=== PATIENT | male | born 1960 | race Caucasian/White ===

== ENCOUNTER 2016-04-18 10:59 | Emergency (ER) | payer OTHER ==
[~2016-04-18] VITALS: Ht 177.8 cm; Wt 86.4 kg
[2016-04-18 11:01] VITALS: BP 190/122; RESP 18; O2SAT 96
== END 2016-04-18 13:03 | disposition left against medical advice (07) ==
LOC: SED 10:59
DX: Z53.20 Procedure and treatment not carried out because of patient's decision for unspecified reasons (principal)

== ENCOUNTER 2016-09-08 13:13 | Observation (INO) | payer OTHER ==
[~2016-09-08] VITALS: Ht 177.8 cm; Wt 92.5 kg
[2016-09-08 15:11] VITALS: BP 150/88; PULSE 49; RESP 22; O2SAT 100
[2016-09-08] MEDS ORDERED: Senna-Docusate 8.6-50 mg Tablet PO PRN (15:45)
[2016-09-08] MEDS ORDERED: Atropine 1 mg/10 mL (Code) Syringe IVPUSH PRN (15:45)
[2016-09-08] MEDS ORDERED: Polyethylene Glycol (PEG) 17 Gm Powder PO PRN (15:45)
[2016-09-08] MEDS ORDERED: Alum-Mag Hydrox-Simeth 30 mL Suspension PO PRN (15:45)
[2016-09-08] MEDS ORDERED: Ondansetron 2 mg/mL 2 mL Inj IVPUSH PRN (15:45)
[2016-09-08] MEDS ORDERED: ASPI-973 PO (15:50)
[2016-09-08] MEDS ORDERED: SIMV40TA5 PO (15:50)
[2016-09-08] MEDS ORDERED: METO25TA6 PO (15:50)
[2016-09-08] MEDS ORDERED: Heparin 25K Unit/500mL 0.45 NS 25,000 UNIT in IV Premix 1 EACH IV SCH (15:55)
--- NOTE | 2016-09-08 16:03 | PCM.HPMED ---
Subjective Date of Service Sep 08, 2016 Primary Provider: Admitting Physician: Mehrdad Blackwell MD Primary Care Physician: Nopcp Attending Physician: Mehrdad Blackwell MD Admit Status: 23-Hour Observation, [facility] Telemetry Chief Complaint: Chest pain, possible unstable angina History of Present Illness: This is a 55-year-old man with known history of CAD and coronary bypass grafting 4 in 2011. The patient has had intermittent chest pain episodes for 4 weeks. He notes that he went to the ER about 4 weeks ago. Since then he has had about 4 episodes. He has been talking to his doctor at the [facility] about having a heart test but this is been pending and not yet happened. Today he also chest tightness while at rest and have a feeling of doom and left arm pain. Symptoms lasted one hour. Gradually got better and went way. He notes that most of his episodes of happened at rest one happened when he was planting a free. He notes that the pain has reliably radiated to the left arm. Nothing in particular is noted this pain come on including exertion and nothing in particular is made up including taken nitroglycerin. He said no associated shortness of breath or diaphoresis he does have chronic stomach problem is but denies active dyspepsia recently and has been taking omeprazole every other day for some time. He does have history of all abuse but did stop about 12 days ago for 9 days. The last 3 days he has been drinking again has gone through half case of beer as well as whiskey last night. He does not use at risk for withdrawal based on the previous 9 days. Denies a cough, calf pain or swelling or hemoptysis. No clear exertional chest pain or dyspnea. Review of Systems: His chronic depression denies suicidal ideation. He also has chronic polyuria and some retention he believes his prostate is causing this. He has intermittent constipation recently.All else is reviewed and otherwise negative except as noted in the history of present illness Allergies Coded Allergies: No Known Allergies (Unverified , 04/18/16) Home Medications Baby aspirin once a day metoprolol 25 mg twice a day, simvastatin 40 mg daily and omeprazole 20 mg every other day PMH CAD with history of bypass grafting in 2010. He has a history of coronary extremity 2012 and exercise stress test in 2012. Bypass was preceded by symptoms of syncope. 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 Social History Occupation: retired Hx Alcohol Use: Yes Alcoholic Drinks Per Day: 3-4 Hx Substance Use: Yes Hx Tobacco Use: No Living Arrangement: with Family Exam Vital Signs Vital Sign - Last Date Time Temp Pulse Resp B/P Pulse Ox O2 Delivery O2 Flow Rate FiO2 09/08/16 15:11 36.4 49 22 150/88 100 Room Air Exam Oriented 3. No distress. Fluent speech. Normal affect. Normal skull. Normal nose and ears. Anicteric sclera, symmetric pupils Oropharynx is unremarkable, no facial droop. Neck is supple, normal thyroid. No adenopathy. Lungs are clear, normal effort rate. Heart is regular without murmur gallop or rub. Abdomen soft, nondistended or tender. Extremities are free of pedal edema. Good radial and pedal pulses. Skin is free of rash, lesions. No petechiae or ecchymosis. Joints are grossly normal. Cranial nerves are grossly normal. Motor strength is normal in all extremities. Normal muscular tone. Patient's multiple tattoos over her arms. He also has a flat affect. Assessment & Plan 1. Unstable angina, POA. The patient will be treated with dual antiplatelets including a Plavix load as well as a beta blockade and heparin which is ordered regarding IV upon transfer. We will also start him on nitroglycerin paste and continue atorvastatin. We will trend troponins and cardiology is oriented and performed prior to his transfer. 2. Alcohol abuse, POA. The patient is likely low risk for withdrawal but watch and follow clinically. B Yusuf protocol was not an active at this time 3. Depression, POA. Follow clinically. Patients for resuscitation Patient is admitted observation status estimated is 190. Pain Evaluation: Adequate Pain Control Resuscitation Status: CPR: Attempt Resuscitation Time spent 40 minutes Mehrdad Blackwell MD Sep 08, 2016 16:03
[2016-09-08] MEDS ORDERED: Heparin Initial Bolus IVPUSH ONE (16:15)
[2016-09-08] MEDS ORDERED: Heparin 5,000 Unit/mL Inj SUBQ SCH (16:30)
[2016-09-08] MEDS: 0.9% Sodium Chloride 1,000 ML IV SCH (16:35)
[2016-09-08] MEDS: Sodium Chloride LOK Flush 10 mL Syringe IVFLUSH SCH ×2 (16:36→22:54)
[2016-09-08] MEDS: Nitroglycerin 2% 1 Gm Ointment TOPICAL SCH ×2 (16:41→23:16)
[2016-09-08 17:12] LABS: Creatine Kinase 93 U/L (21-232); Magnesium 2.1 mg/dL (1.6-2.6)
--- NOTE | 2016-09-08 18:44 | NUR ---
Admit to [facility] Pt onto floor at 15:00. Pt admitted from [place] ED. Vitals stable, denies CP. Med Rec completed, admit completed. Pt called home to have medication labels read to him to confirm doses. Cardiac: Pt denies CP on admission, Tele alessandro 50s upon arrival and then trend up to mid 70s by end of shift. Resp: Pt denies SOB, SPO2 99% on RA, GI/: Pt denies n/v/d Neuro: A&Ox3, KILO
[2016-09-08 20:03] VITALS: BP 125/65; PULSE 63; RESP 19; O2SAT 95
[2016-09-08 20:22] VITALS: PULSE 65
[2016-09-08] MEDS: Heparin 5,000 Unit/mL Inj IVPUSH PRN (21:45)
[2016-09-08 21:51] LABS: Creatine Kinase 87 U/L (21-232)
[2016-09-08 23:13] VITALS: BP 109/63; PULSE 52; RESP 17; O2SAT 95
--- NOTE | 2016-09-09 02:19 | NUR ---
Metoprolol: 0230 Metoprolol held for HR in the 40s. pt asymptomatic- sleeping comfortably- pt has denied chest pain / discomfort.
[2016-09-09 03:06] VITALS: BP 127/68; PULSE 47; RESP 16; O2SAT 91
[2016-09-09 04:05] LABS: BASOPHILS % (AUTO) 0.8 % (0-3); EOSINOPHILS % (AUTO) 5.9 % (0-5); MONOCYTES % (AUTO) 9.8 % (4-12); Mean Corpuscular Hemoglobin 31.7 pg (27.0-35.0); NEUTROPHILS % (AUTO) 55.4 % (40-74); Platelet Count 155 bil/L (150-400)
[2016-09-09] MEDS: 0.9% Sodium Chloride 1,000 ML IV SCH ×2 (04:13→08:34)
[2016-09-09] MEDS: Heparin 5,000 Unit/mL Inj IVPUSH PRN (04:36)
[2016-09-09] MEDS: Nitroglycerin 2% 1 Gm Ointment TOPICAL SCH ×3 (04:39→16:52)
[2016-09-09 04:47] LABS: TROPONIN T < 0.010 ug/L (0.0-0.011)
[2016-09-09 07:35] VITALS: BP 140/62; PULSE 49; RESP 16; O2SAT 96
--- NOTE | 2016-09-09 08:27 | PCM.PNMED ---
Subjective Date of Service Sep 09, 2016 Subjective He is doing well. No problems overnight. He is on heparin drip. He denies any chest pain or pressure or palpitations. No nausea or diaphoresis. He is hungry. No overnight events Exam Vital Signs Vital Sign - Last Date Time Temp Pulse Resp B/P Pulse Ox O2 Delivery O2 Flow Rate FiO2 09/09/16 07:35 36.4 49 16 140/62 96 Room Air Intake and Output 09/08/16 09/08/16 09/09/16 Cumulative From/Thru 15:00 23:00 07:00 09/08/16 15:09 - 09/09/16 06:24 Intake Total 400 ml 1184 ml 1584 ml Output Total 0 ml 500 ml 500 ml Balance 400 ml 684 ml 1084 ml Intake Oral 400 ml 320 ml 720 ml IV Total 864 ml 864 ml Output Urine Total 0 ml 500 ml 500 ml # Bowel Movements 0 0 Exam Alert and oriented -3, no distress. Fluent speech Anicteric sclera. Lungs are clear with normal rate and effort Heart is regular without murmur gallop or rub Abdomen soft nontender, flat Extremities are free of edema. Skin is free of rash or lesions. IVs and Medications Medications Reviewed: Medications were reviewed in detail Lab and Diagnostics Result Diagram: 09/09/1633909/09/16 034 Assessment & Plan 1. Unstable angina, POA. He remained stable on a heparin drip and dual antiplatelet therapy as well as beta blockade. The patient has negative troponins and is asymptomatic. We will discuss with cardiology today regarding stress test versus angiogram.. 2. Alcohol abuse, POA. He is doing well. No evidence of withdrawal. 3. Depression, POA. Follow clinically. Patients for resuscitation Patient is admitted observation status estimated is 190. VTE Mechanical Devices: Intermittant Pneumatic CD Resuscitation Status: CPR: Attempt Resuscitation Mehrdad Blackwell MD Sep 09, 2016 08:27
[2016-09-09] MEDS: Sodium Chloride LOK Flush 10 mL Syringe IVFLUSH SCH ×2 (08:30→16:58)
--- NOTE | 2016-09-09 08:58 | NUR ---
Social Work Note: Screen Note Data& Assessment: EMR reviewed. Shailesh Albright is a 55 year old male admitted on 09/08/2016 for chest pain. Pt [place] and goes to the [facility] clinic for primary care. Pt lives in [place] with family and is independent at baseline. SW to continue to follow for MD orders and needs as pt medically progresses. SW to continue to follow. Plan: Anticipated discharge home when medically ready. SW to continue to follow for MD orders and needs as pt medically progresses. SW to continue to follow. HUSSIEN Jeffery
[2016-09-09 09:14] VITALS: PULSE 78
--- NOTE | 2016-09-09 10:26 | PCM.CHPCAR ---
Consult Subjective Date of service Sep 09, 2016 Date of admit Sep 08, 2016 at 14:55 Provider Requesting Consult Requesting Provider: Mehrdad Blackwell MD Primary Care Physician [facility] Chief Complaint Chest pain History of Present Illness This is a 55-year-old 100% disabled who comes in complaining of chest pain. He has history of coronary disease with status post quadruple bypass surgery completed at [facility] in 2010. The patient has had a prior stress test about 4 years ago. Patient also has history of brainstem glioma, inoperable as per the patient. He had a recent brain MRI about 2 months ago performed in [place] he also has history of depression and hyperlipidemia. Patient presents to [facility] because of complaints of ongoing chest pain is intermittent over the past several months. His chest pain would occur at random moments. He has had one occurred after eating and as well as on exertion such as planting a tree. The patient states that his pain is located at the left side with radiation down his left arm. The pain will last for up to about one to 2 hours and then eventually dissipate after just sitting. Because of his history the ER physician at [facility] requested the patient be transferred to our facility for further cardiovascular workup. Patient so far has not had any positive troponins nor has his EKG shown any acute ST-T changes. He is currently chest pain-free. He denies any other symptoms associated with his chest discomfort. Patient does admit he has history of alcohol abuse and apparently his last drink was about 9 days ago. But then he admits later on that for the last 3 days he has been drinking beer and whiskey. 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 Apparently he was having angina for quite some time prior to his CABG and he eventually demanded a coronary angiogram and then was found to have severe multivessel coronary artery disease. For the most part is done pretty well since his bypass surgery in 2010. Review of Systems Review of Systems CONSTITUTIONAL: Negative for fever, weight loss or weight gain. HEENT: Eyes: Negative for glaucoma or cataracts. Ears: Negative pain or loss of hearing. Nose: Negative for nasal congestion. Negative for rhinorrhea or postnasal drip. Mouth: Negative for false teeth. Throat: Negative for masses or hoarseness. Negative for snoring. CARDIOVASCULAR: Positive for chest pain but negative for palpitations, near syncope, syncope, PND, or orthopnea. RESPIRATORY: Negative for shortness of breath, hemoptysis, COPD, cough. GASTROINTESTINAL: Negative for nausea, vomiting, diarrhea or heartburn. GENITOURINARY: Negative for dysuria. MUSCULOSKELETAL: Negative for osteoarthritis. SKIN: Negative for rashes. NEUROLOGIC: Negative for headaches, blurry vision, CVA, mental status changes. PSYCHIATRIC: Positive for depression. Negative for daytime sleepiness or insomnia. ENDOCRINE: Negative for diabetes or thyroid abnormalities. HEMATOLOGIC: Negative for anemia or blood dyscrasias. PMH Past Medical History CAD with history of bypass grafting in 2010. He has a history of coronary extremity 2012 and exercise stress test in 2012. Bypass was preceded by symptoms of syncope. 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 Depression Hyperlipidemia Alcohol abuse Bedside Blood Glucose: 71 Scheduled Aspirin (Aspirin) 81 Mg Tablet 81 MG PO DAILY (Reported) Metoprolol Tartrate (Metoprolol Tartrate) 25 Mg Tablet 25 MG PO BID (Reported) Simvastatin (Simvastatin) 40 Mg Tablet 40 MG PO HS (Reported) Current Inpatient Medications Current Medications Heparin Sodium (Porcine) 5,000 unit Q8 SUBQ; Start 09/08/16 at 16:30; Stop 09/08 at 16:30; Status DC Sodium Chloride 10 ml 10 ml CASSANDRA IVFLUSH Last administered on 09/08/16 22:54; Admin Dose 10 ML; Start 09/08/16 at 16:30 Sodium Chloride 1,000 ml @ 80 mls/hr [id number] IV Last administered on 09/09/16 08:34; Admin Dose 80 MLS/HR; Start 09/08/16 at 15:43 Aspirin 81 mg DAILY PO Last administered on 09/09/16 08:35; Admin Dose 81 MG; Start 09/08/16 at 15:45 Clopidogrel Bisulfate 75 mg DAILY PO Last administered on 09/09/16 08:35; Admin Dose 75 MG; Start 09/09/16 at 08:30 Nitroglycerin 1 inch Q6H TOPICAL Last administered on 09/09/16 04:39; Admin Dose 1 INCH; Start 09/08/16 at 16:30 Metoprolol Tartrate 12.5 mg Q6 PO Last administered on 09/09/16 08:35; Admin Dose 12.5 MG; Start 09/08/16 at 20:30 Atorvastatin Calcium 80 mg HS PO Last administered on 09/08/16 20:00; Admin Dose 80 MG; Start 09/08/16 at 21:00 Al Hydrox/Mg Hydrox/Simethicone 30 ml Q6 PRN PO; Start 09/08/16 at 15:45 Ondansetron HCl 4-8 mg prn nausea Q4 PRN IVPUSH; Start 09/08/16 at 15:45 Senna 1 tablet BID PRN PO; Start 09/08/16 at 15:45 Polyethylene Glycol 17 gm DAILY PRN PO; Start 09/08/16 at 15:45 Acetaminophen 325 mg Q6 PRN PO Last administered on 09/09/16 04:42; Admin Dose 325 MG; Start 09/08/16 at 15:45 Nitroglycerin 0.4 mg Q5MIN PRN SL; Start 09/08/16 at 15:45 Morphine Sulfate 1-5 mg prn pain not relie... Q5M PRN IVPUSH; Start 09/08/16 at 15:45 Atropine Sulfate 1 mg Q5MIN PRN IVPUSH; Start 09/08/16 at 15:45 Lorazepam 0.5 mg Q4 PRN IVPUSH; Start 09/08/16 at 15:45 Heparin Sodium (Porcine) Per Protocol for a... PRN PRN IVPUSH Last administered on 09/09/16 04:36; Admin Dose 1,000 UNIT; Start 09/08/16 at 15:55 Allergies: Coded Allergies: No Known Allergies (Unverified , 04/18/16) Family History Family History Strong family history of CAD with mother and father both having bypass graft surgeries and subsequent PCI's. Apparently his brother was recently diagnosed about 2 years ago with hypertrophic cardiomyopathy. The patient has been informed he has no findings on his last echocardiogram that was suggest that he has it as well. Social History Occupation: retired Hx Alcohol Use: YesAlcoholic Drinks Per Day: 3-4 Hx Substance Use: YesHx Tobacco Use: No Living Arrangement: with Family Exam Vital Signs Vital Sign - Last Date Time Temp Pulse Resp B/P Pulse Ox O2 Delivery O2 Flow Rate FiO2 09/09/16 09:14 78 09/09/16 07:35 36.4 16 140/62 96 Room Air Intake and Output 09/08/16 09/08/16 09/09/16 Cumulative From/Thru 15:00 23:00 07:00 09/08/16 15:09 - 09/09/16 06:24 Intake Total 400 ml 1184 ml 1584 ml Output Total 0 ml 500 ml 500 ml Balance 400 ml 684 ml 1084 ml Intake Oral 400 ml 320 ml 720 ml IV Total 864 ml 864 ml Output Urine Total 0 ml 500 ml 500 ml # Bowel Movements 0 0 General: Pleasant Cooperative Skin: Warm & dry to touch Head: Normocephalic Eye: EOMS intact Neck: Nuchal obesity:JVP assess difficult Ears, Nose & Throat: Ears no gross abnormalities Nose no gross abnormalities Chest: Clear auscultation w/o rales/wheeze Cardiac: Normal non-displaced apical impulse Non-palpable apical impulse Regular rhythm Normal S1 and S2 No S3 or S4 Pulses: Pulses full/equal all extremities Abdomen: Soft, non-distended, non-tender Without masses or organomegally Extremities: Warm w/o deformities,erythema noted Neurological: Alert & oriented Psychological: Memory grossly intact Oriented to time, place and person Lab and Diagnostics Labs CBC Test 09/09/16 03:40 White Blood Count 7.6th/mm3 (3.8-10.1) Red Blood Count 4.20mil/mm3 (4.40-5.80) Hemoglobin 13.3g/dL (13.8-17.2) Hematocrit 38.2% (41.0-50.0) Mean Corpuscular Volume 91.0fL (81-100) Mean Corpuscular Hemoglobin 31.7pg (27.0-35.0) Mean Corpuscular Hemoglobin Concent 34.8% (32.0-37.0) Red Cell Distribution Width 12.6% (12.3-15.4) Platelet Count 155bil/L (150-400) Neutrophils (%) (Auto) 55.4% (40-74) Lymphocytes (%) (Auto) 27.8% (14-46) Monocytes (%) (Auto) 9.8% (4-12) Eosinophils (%) (Auto) 5.9% (0-5) Basophils (%) (Auto) 0.8% (0-3) CMP Test 09/08/16 16:10 09/08/16 21:05 09/09/16 03:40 Magnesium Level 2.1mg/dL Thyroid Stimulating Hormone (TSH) 1.240uIU/mL Total Creatine Kinase 87U/L Creatine Kinase MB 1.7ng/mL Creatine Kinase MB % % Sodium Level 138mEq/L Potassium Level 4.2mEq/L Chloride Level 106mEq/L Carbon Dioxide Level 21mmol/L Blood Urea Nitrogen 18mg/dL Creatinine 0.96mg/dL Estimat Glomerular Filtration Rate 86mL/min Glucose Level 95mg/dL Calcium Level 8.7mg/dL Troponin T < 0.010ug/L Triglycerides Level 140mg/dL Cholesterol Level 118mg/dL LDL Cholesterol, Calculated 53.000mg/dL VLDL Cholesterol 28.000mg/dL HDL Cholesterol 37mg/dL Cholesterol/HDL Ratio 3.19 Result Diagram: 09/09/1633909/09/16339 Assessment & Plan Problems: (1) Atypical chest pain Plan: Chest pain is rather atypical. His troponins so far negative. His EKG is unremarkable. Patient was already scheduled for outpatient exercise treadmill study since the patient is here and so far he has been ruled out for acute coronary syndrome, I think it be reasonable to go ahead and proceed with inpatient exercise treadmill sestamibi. Also I will like to get more information about his coronary bypass anatomy as well as his most recent brain MRI performing [facility] before embarking on any cardiology interventions if necessary. For now think we may discontinue his intravenous heparin and simply put him on aspirin and Plavix and continue with his beta blockers and statins. He will need to continue with his beta blockers during the treadmill sestamibi. He has known CAD so I will like to know how effective his anti-anginal medications are during the ETT. Tomorrow my colleague Dr. Mayte Graves will take over the cardiology service and she will follow up with the stress test results to decide if any further diagnostic studies are required. Status: Resolved ICD Code: R07.89 (2) Family history of hypertrophic cardiomyopathy Plan: Patient states that his brother was recently diagnosed with hypertrophic cardiomyopathy about 2 years ago. Patient just completed his echo also will assess for any evidence for anatomical findings for hypertrophic cardiomyopathy or LV wall motion abnormalities. Patient was explained about the clinical history for hypertrophic cardiomyopathy and that he would need to continue with serial echocardiograms at least every 3-5 years if this echo shows no evidence of hypertrophic cardiomyopathy. He is made aware that he has a 50% chance for the gene and if he does have it his expression for hypertrophic cardiomyopathy can be significantly different from his brother. ICD Code: Z82.49 (3) CAD (coronary artery disease) Qualifiers: Coronary Disease-Associated Artery/Lesion type: [place] artery [place] vs. transplanted heart: [place] heart Associated angina: with other forms of angina Qualified Code: I25.118 - Atherosclerotic heart disease of [place] coronary artery with other forms of angina pectoris Status: Acute ICD Code: I25.10 (4) S/P CABG x 4 Plan: I will ask to obtain his cardiology workup at [facility]. Status: Acute ICD Code: Z95.1 (5) Hyperlipidemia, mixed Plan: Patient will continue with high-dose atorvastatin. Onset Date: ~ 08/2016 Status: Chronic ICD Code: E78.2 (6) Alcohol abuse Status: Chronic ICD Code: F10.10 Pain Evaluation: Adequate Pain Control VTE Mechanical Devices: Intermittant Pneumatic CD Resuscitation Status: CPR: Attempt Resuscitation Time spent 80 minutes Eusebio Infante MD Sep 09, 2016 10:26
[2016-09-09 12:46] VITALS: BP 124/69; PULSE 58; RESP 16; O2SAT 95
[2016-09-09 16:35] VITALS: BP 130/67; PULSE 49; RESP 24; O2SAT 97
--- NOTE | 2016-09-09 17:58 | NUR ---
Stress test Pt is anxious about getting discharged as soon as medically ready following his stress test. Cardiac: Pt denies CP, Tele SR alessandro 47-60, up to mid 70s with activity. metoprolol given this AM since HR not below 45. Stress test ordered for AM. Have held all caffine this shift, pt will be NPO at midnight. Orders written to continue metoprolol. Nitro paste to be removed prior to stress test. Resp: Pt denies SOB, SPO2 99% on RA GI/: denies n/v tolerating PO Neuro: a/ox3. BOATENG
--- NOTE | 2016-09-09 20:05 | NUR ---
AMA: Pt in [place] pacing yelling at staff, slamming door. RN to room to assess pt. Pt initially refusing vitals and meds. States he wants his IV out and wants to go home. When attempt to discuss with pt he got loud and said " I DONT WANT TO ARGUE WITH YOU, I AM LEAVING NOW!". Dr. Hernandez made aware. Nuc med study canceled per UA. IV d/c as well as tele and nitro paste. informed pt of risks of leaving AMA including Cardiac arrest, , heart attack- ect. Pt signed AMA paperwork.
--- NOTE | 2016-09-10 13:50 | PCM.DC.MED ---
Discharge Summary Date of Service Sep 09, 2016 Dates of Hospitalization Date of Hospital Admission Sep 08, 2016 at 14:55 Date of Discharge: Sep 09, 2016 Providers: Admitting Physician: Mehrdad Blackwell MD [facility]: Mehrdad Blackwell MD Diagnosis at Time of Discharge Diagnosis at Time of Discharge 1. AMA discharge 2. Chest pain, clear etiology 3. Known coronary artery disease 4. Known midbrain brain tumor Procedures XRay, CTs & MRIs Chest x-ray is unremarkable ECG 12 Lead EKG is sinus rhythm and otherwise unremarkable Brief History This is a 55-year-old 100% disabled who comes in complaining of chest pain. He has history of coronary disease with status post quadruple bypass surgery completed at [facility] in 2010. The patient has had a prior stress test about 4 years ago. Patient also has history of brainstem glioma, inoperable as per the patient. He had a recent brain MRI about 2 months ago performed in [place] he also has history of depression and hyperlipidemia. Patient presents to [facility] because of complaints of ongoing chest pain is intermittent over the past several months. His chest pain would occur at random moments. He has had one occurred after eating and as well as on exertion such as planting a tree. The patient states that his pain is located at the left side with radiation down his left arm. The pain will last for up to about one to 2 hours and then eventually dissipate after just sitting. Because of his history the ER physician at [facility] requested the patient be transferred to our facility for further cardiovascular workup. Patient so far has not had any positive troponins nor has his EKG shown any acute ST-T changes. He is currently chest pain-free. He denies any other symptoms associated with his chest discomfort. Patient does admit he has history of alcohol abuse and apparently his last drink was about 9 days ago. But then he admits later on that for the last 3 days he has been drinking beer and whiskey. 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 Apparently he was having angina for quite some time prior to his CABG and he eventually demanded a coronary angiogram and then was found to have severe multivessel coronary artery disease. For the most part is done pretty well since his bypass surgery in 2010. Hospital Course 1. Unstable angina, POA. He remained stable on a heparin drip and dual antiplatelet therapy as well as beta blockade. The patient has negative troponins and is asymptomatic. We will discuss with cardiology today regarding stress test versus angiogram.. 2. Alcohol abuse, POA. He is doing well. No evidence of withdrawal. 3. Depression, POA. Follow clinically. Patients for resuscitation Patient is admitted observation status estimated is 190. Hospital course. This patient was accepted in transfer with crescendo chest pain symptoms. He was heparinized and placed on cardioprotective medication regimen. The patient was seen by cardiology on the day that he left AMA. They recommended stress test and blood work able to accomplish this until the following day on Saturday. The patient became agitated throughout the later afternoon and apparently left AGAINST MEDICAL ADVICE early in the evening of the . Exam Vital Signs (Last) Date Time Temp Pulse Resp B/P Pulse Ox O2 Delivery O2 Flow Rate FiO2 09/09/16 16:35 36.8 49 24 130/67 97 Room Air Exam Patient was seen and examined earlier in the day of discharge Test 09/08/16 16:10 09/08/16 21:05 09/09/16 03:40 09/09/16 09:50 Hemoglobin A1c 5.1% (4.8-5.6) Magnesium Level 2.1mg/dL (1.6-2.6) Thyroid Stimulating Hormone (TSH) 1.240uIU/mL (0.450-4.500) Total Creatine Kinase 87U/L (21-232) Creatine Kinase MB 1.7ng/mL (0.0-10.4) Creatine Kinase MB % % (0.0-5.0) White Blood Count 7.6th/mm3 (3.8-10.1) Red Blood Count 4.20mil/mm3 (4.40-5.80) Hemoglobin 13.3g/dL (13.8-17.2) Hematocrit 38.2% (41.0-50.0) Mean Corpuscular Volume 91.0fL (81-100) Mean Corpuscular Hemoglobin 31.7pg (27.0-35.0) Mean Corpuscular Hemoglobin Concent 34.8% (32.0-37.0) Red Cell Distribution Width 12.6% (12.3-15.4) Platelet Count 155bil/L (150-400) Neutrophils (%) (Auto) 55.4% (40-74) Lymphocytes (%) (Auto) 27.8% (14-46) Monocytes (%) (Auto) 9.8% (4-12) Eosinophils (%) (Auto) 5.9% (0-5) Basophils (%) (Auto) 0.8% (0-3) Sodium Level 138mEq/L (134-144) Potassium Level 4.2mEq/L (3.5-5.2) Chloride Level 106mEq/L (97-108) Carbon Dioxide Level 21mmol/L (18-29) Blood Urea Nitrogen 18mg/dL (6-24) Creatinine 0.96mg/dL (0.76-1.27) Estimat Glomerular Filtration Rate 86mL/min (>59) Glucose Level 95mg/dL (60-99) Calcium Level 8.7mg/dL (8.5-10.1) Troponin T < 0.010ug/L (0.0-0.011) Triglycerides Level 140mg/dL (0-149) Cholesterol Level 118mg/dL (100-199) LDL Cholesterol, Calculated 53.000mg/dL (0-99) VLDL Cholesterol 28.000mg/dL HDL Cholesterol 37mg/dL (>39) Cholesterol/HDL Ratio 3.19 (0.0-4.4) Activated Partial Thromboplast Time 35.6sec (22.8-33.0) Discharge Medications Discharge Medications Aspirin (Aspirin) 81 Mg Tablet 81 MG PO DAILY (Reported) Metoprolol Tartrate (Metoprolol Tartrate) 25 Mg Tablet 25 MG PO BID (Reported) Simvastatin (Simvastatin) 40 Mg Tablet 40 MG PO HS (Reported) Followup Plan Disposition: Home, AMA Time spent 35 minutes Mehrdad Blackwell MD Sep 10, 2016 13:50
--- NOTE | 2016-09-11 11:11 | DRSVH ---
[facility] [address] [place] [address] Echocardiogram Report Name: ZARIA NEWELL ate: 09/09/2016 Height: 70 in Hospital Exam Location: [facility] Weight: 204 lb Gender: Male BSA: 2.1 m2 : 1960 Age: 55 yrs BP: 127/68 mmHg Reason For Study: CHEST PAIN Ordering Physician: BRITTANY TEAM Performed By: Ld Boggs Referring Physician: MANNY Interpretation Summary Left ventricular wall thickness is borderline increased. Left ventricular systolic function is normal. The ejection fraction is estimated to be 60-65%. There is mid anterolateral wall mild hypokinesis. There is mid anterior wall mild hypokinesis. There is apical anterior wall mild hypokinesis. The right ventricle is normal in size and function. Pulmonary artery pressures cannot be estimated because of the lack of a measurable TR jet velocity. Both atria are normal in size. There is no significant valvular heart disease. The aortic root is normal size. Procedure: A two-dimensional transthoracic echocardiogram with color flow and Doppler was performed. The study quality was technically adequate. Comparison is made with the echocardiogram of 04/07/13. Patient has a history of CABG x 4. A contrast injection of Definity was performed to improve assessment of LV function. The patient was in normal sinus rhythm during the exam. The patient was bradycardic with a heart rate of 46-53 beats per minute. Left Ventricle: The left ventricle is normal in size. Left ventricular wall thickness is borderline increased. Left ventricular systolic function is normal. The ejection fraction is estimated to be 60-65%. There is mid anterolateral wall mild hypokinesis. There is mid anterior wall mild hypokinesis. There is apical anterior wall mild hypokinesis. Spectral Doppler of the mitral valve shows a normal E/A wave ratio. Right Ventricle: The right ventricle is normal in size and function. Atria: Both atria are normal in size. The interatrial septum is intact with no evidence for an atrial septal defect. Mitral Valve: The mitral valve is normal in structure and function. There is trace mitral regurgitation. Aortic Valve: The aortic valve is normal in structure and function. The aortic valve is trileaflet. The aortic valve opens well. There is trace aortic regurgitation. Tricuspid Valve: The tricuspid valve is normal in structure and function. There is a trace or physiologic amount of tricuspid regurgitation. Pulmonary artery pressures cannot be estimated because of the lack of a measurable TR jet velocity. Pulmonic Valve: The pulmonic valve is normal in structure and function. There is trace pulmonic regurgitation. There is no significant valvular heart disease. Great Vessels: The aortic root is normal size. The dimensions of the ascending aorta are normal. The pulmonary artery is normal size. The IVC is of normal diameter and collapses greater than 50% with a sniff. This suggests a low right atrial pressure of 3 mm Hg. Pericardium/ Pleura There is no pericardial effusion. There is no pleural effusion. MMode/2D Measurements & Calculations LVIDd: 4.8 cm RA long axis asc Aorta LVIDs: 2.7 cm LA A2 area: 19.1 cm Diam: 3.2 cm FS: 44.3 % LA A4 area: 24.6 cm RA area IVSd: 1.2 cm LA length (vol): 6.2 cm LVPWd: 1.0 cm LA vol: 64.8 ml : 13.7 cm LA vol index RA vol: 36.7 ml RA : 30.8 ml/m2 : 17.4 mm2 LV villanueva. diameter/BSA LV sys. diameter/BSA (cm/m^2): 2.3 (cm/m^2): 1.3 Doppler Measurements & Calculations Ao V2 max MV E max jean MV E/A: 1.3 PA V2 max : 112.5 cm/sec : 63.9 cm/sec MV A dur: 0.11 sec : 61.4 cm/sec Ao max P.1 mmHgMV A max jean PA mean PG Ao mean PG : 49.5 cm/sec : 0.87 mmHg : 3.0 mmHg PA Accel Time : 0.12 sec MV dec time Ao V2 mean PA V2 mean : 0.17 sec : 83.8 cm/sec : 44.6 cm/sec Ao V2 VTI: 29.2 cm PA pr(Accel) : 24.2 mmHg Reading Physician:MEHDI
== END 2016-09-09 20:00 | disposition left against medical advice (07) ==
LOC: PCC 14:55 → INTOOBSV 14:55
PROVIDERS: ADMIT Hospitalist; ATTEND Hospitalist
DX: R07.9 Chest pain, unspecified (principal); I25.110 Atherosclerotic heart disease of native coronary artery with unstable angina pectoris; Z95.1 Presence of aortocoronary bypass graft; C71.7 Malignant neoplasm of brain stem; F32.9 Major depressive disorder, single episode, unspecified; E78.5 Hyperlipidemia, unspecified; F10.10 Alcohol abuse, uncomplicated; Z79.82 Long term (current) use of aspirin; Z79.02 Long term (current) use of antithrombotics/antiplatelets
CPT/HCPCS: 36415; 80048; 80061; 82550; 82553; 83036; 83735; 84443; 84484; 85025; 85730; 96374; 96376; C8929; G0378; G0379; J1644; J7030